=== PATIENT | male | born 1950 | race African-American/Black ===

== ENCOUNTER → 2017-02-24 | Outpatient (CLI) | payer BC ==
[~2017-02-24] MED LIST: ASPI-1159 PO; CEPH500T PO; DICL50TA9 PO; HYDR-4001 PO; HYDR-519 PO; METH-375 PO; NAPR220C15 PO; OMEP20CA10 PO
[2017-02-24 08:06] LABS: BASOPHILS % 1.1 % (0.0-2.0); EOSINOPHILS % 2.6 % (0.0-5.0); HEMATOCRIT. 45.8 % (42.0-52.0); HEMOGLOBIN. 15.5 g/dL (14.0-18.0); LYMPHOCYTES % 23.8 % (20.0-50.0); MEAN CORPUSCULAR HEMOGLOBIN 30.8 pg (28.0-32.0); MEAN CORPUSCULAR VOLUME 91.1 fL (80.0-94.0); MEAN PLATELET VOLUME 7.9 fl (7.4-10.4); NEUTROPHILS % 62.5 % (40.0-76.0); PLATELET 234 x1000/uL (130-400); RED BLOOD CELL COUNT 5.02 mill/uL (4.7-6.1); RED CELL DISTRIBUTION WIDTH 13.9 % (11.6-14.6)
[2017-02-24 08:13] LABS: CARBON DIOXIDE 29 mEq/L (21-32); CHLORIDE 107 mEq/L (98-107); HDL CHOLESTEROL 59 mg/dL (40-59); LDL CHOLESTEROL 144 mg/dL (5-100)
[2017-02-24 08:26] LABS: CLARITY URINE CLEAR (CLEAR); COLOR URINE YELLOW (YELLOW); GLUCOSE URINE NEGATIVE (NEGATIVE); KETONES URINE NEGATIVE (NEGATIVE); LEUKOCYTE ESTERASE URINE 1+ (NEGATIVE); NITRITE URINE NEGATIVE (NEGATIVE); OCCULT BLOOD URINE NEGATIVE (NEGATIVE); PROTEIN URINE NEGATIVE (NEGATIVE); UROBILINOGEN URINE 0.2 E.U./dL (0.2-1.0)
== END | disposition home or self-care (01) ==
LOC: LAB 07:17
PROVIDERS: ATTEND Internal Medicine Critical Care Medicine
DX: M16.11 Unilateral primary osteoarthritis, right hip (principal); N52.9 Male erectile dysfunction, unspecified
CPT/HCPCS: 36415; 80053; 80061; 81001; 84153; 85025; 93005

== ENCOUNTER 2017-03-27 00:21 | Inpatient (IN) | payer BC ==
[~2017-03-27] VITALS: Ht 182.9 cm; Wt 118.8 kg
[~2017-03-27 00:21] MED LIST changes: -CEPH500T PO; -DICL50TA9 PO; -HYDR-4001 PO; -OMEP20CA10 PO
[2017-03-27] MEDS ORDERED: SODIUM CHLORIDE 0.9% 1,000 ML IV ONE ×2 (00:33→05:03)
[2017-03-27] MEDS ORDERED: KETOROLAC 30MG/ML VIAL IV STA (00:33)
[2017-03-27] MEDS ORDERED: ONDANSETRON HCL 4MG/2ML VIAL IV STA (00:33)
[2017-03-27] MEDS ORDERED: DICL50TA9 PO (00:36)
[2017-03-27] MEDS ORDERED: METH-375 PO (00:37)
[2017-03-27 00:51] LABS: HEMATOCRIT. 44.6 % (42.0-52.0); MEAN CORPUSCULAR HEMOGLOBIN 30.8 pg (28.0-32.0); MEAN CORPUSCULAR VOLUME 91.2 fL (80.0-94.0); MEAN PLATELET VOLUME 7.9 fl (7.4-10.4); PLATELET 211 x1000/uL (130-400); RED BLOOD CELL COUNT 4.89 mill/uL (4.7-6.1)
[2017-03-27 00:57] LABS: CHLORIDE 101 mEq/L (98-107)
[2017-03-27 01:05] LABS: CARBON DIOXIDE 32 mEq/L (21-32)
[2017-03-27 01:22] LABS: PLATELET ESTIMATE NORMAL
[2017-03-27] MEDS ORDERED: KETOROLAC 30MG/ML VIAL IV ONE (02:45)
[2017-03-27] MEDS ORDERED: MORPHINE SULFATE 2 MG/ML CPJ (NOT FOR IM USE) IV PRN (07:00)
[2017-03-27] MEDS ORDERED: MORPHINE SULFATE 4 MG/ML CPJ (NOT FOR IM USE) IV PRN (07:00)
[2017-03-27] MEDS ORDERED: ONDANSETRON HCL 4MG/2ML VIAL IV PRN (07:00)
[2017-03-27 08:00] VITALS: BP 111/70
[2017-03-27 08:10] VITALS: BP 104/63
[2017-03-27] MEDS: PANTOPRAZOLE SODIUM 40 MG/VIAL IV SCH (11:15)
[2017-03-27 12:00] VITALS: BP_SYST 104; BP_SYST 95; BP_DIAS 52; BP_DIAS 63
[2017-03-27] MEDS: SODIUM CHL 0.45% + KCL 20MEQ/L 1,000 ML IV SCH ×2 (12:30→22:46)
[2017-03-27 16:00] VITALS: BP 104/58
[2017-03-27 17:00] VITALS: BP 111/70
[2017-03-27 17:19] LABS: HEMATOCRIT. 39.6 % (42.0-52.0); HEMOGLOBIN. 13.1 g/dL (14.0-18.0); MEAN CORPUSCULAR HEMOGLOBIN 30.2 pg (28.0-32.0); MEAN CORPUSCULAR VOLUME 90.9 fL (80.0-94.0); MEAN PLATELET VOLUME 7.8 fl (7.4-10.4); PLATELET 187 x1000/uL (130-400); RED BLOOD CELL COUNT 4.35 mill/uL (4.7-6.1); RED CELL DISTRIBUTION WIDTH 14.1 % (11.6-14.6)
[2017-03-27 17:49] LABS: PLATELET ESTIMATE NORMAL
[2017-03-27 20:00] VITALS: BP 111/62
[2017-03-27] MEDS: HYDROCORTISONE 1% RECTAL CREAM 30GM PR SCH (22:46)
[2017-03-28] VITALS: BP 100/63
[2017-03-28 00:25] LABS: INR 1.3; PARTIAL THROMBOPLASTIN TIME 31.6 sec (23.4-31.0); PROTHROMBIN TIME 13.5 sec (9.4-11.6)
[2017-03-28] MEDS: HYDROCORTISONE 1% RECTAL CREAM 30GM PR SCH ×3 (00:47→21:00)
[2017-03-28 04:00] VITALS: BP 118/61
[2017-03-28] MEDS: SODIUM CHL 0.45% + KCL 20MEQ/L 1,000 ML IV SCH (06:45)
[2017-03-28] MEDS ORDERED: BUPIVACAINE HCL 0.5% (5MG/ML) 50ML ONE (06:56)
[2017-03-28] MEDS ORDERED: SKIN ADHESIVE 0.7 GM EA TOP ONE (06:56)
[2017-03-28] MEDS: DEXT 5%/0.45% NACL KCL 20MEQ/L 1,000 ML IV SCH ×2 (07:27→17:44)
[2017-03-28] MEDS ORDERED: HYDROCODONE/ACETAMINOPHEN 5/325MG TABLET PO PRN ×2 (07:30)
[2017-03-28] MEDS ORDERED: ONDANSETRON HCL 4MG/2ML VIAL IV PRN ×2 (07:30→08:15)
[2017-03-28] MEDS ORDERED: MORPHINE SULFATE 4 MG/ML CPJ (NOT FOR IM USE) IV PRN (07:30)
[2017-03-28] MEDS ORDERED: MORPHINE SULFATE 2 MG/ML CPJ (NOT FOR IM USE) IV PRN (07:30)
[2017-03-28] MEDS ORDERED: FENTANYL CITRATE/PF 50MCG/ML 2ML VIAL ONE ×3 (07:38)
[2017-03-28] MEDS ORDERED: HYDROMORPHONE HCL/PF 2MG/ML (OR) ONE (07:38)
[2017-03-28] MEDS ORDERED: MIDAZOLAM HCL 2 MG/2 ML VIAL ONE ×3 (07:38)
[2017-03-28] MEDS ORDERED: SUCCINYLCHOLINE CHLORIDE 200MG/10ML VIAL IV ONE (07:50)
[2017-03-28] MEDS ORDERED: MEPERIDINE HCL/PF 25MG/ML CPJ IV PRN (08:15)
[2017-03-28] MEDS ORDERED: LABETALOL HCL 20MG/4ML CARPUJECT IV PRN (08:15)
[2017-03-28] MEDS ORDERED: HYDROMORPHONE HCL/PF 2MG/ML CPJ IV PRN (08:15)
[2017-03-28] MEDS: PANTOPRAZOLE SODIUM 40 MG/VIAL IV SCH (09:00)
[2017-03-28 10:40] VITALS: BP 131/79
[2017-03-28 12:00] VITALS: BP 128/76
[2017-03-28 16:00] VITALS: BP 133/86
[2017-03-28 20:00] VITALS: BP 130/72
[2017-03-29] VITALS: BP 118/69
[2017-03-29 04:00] VITALS: BP 120/75
[2017-03-29 07:10] LABS: HEMATOCRIT. 42.2 % (42.0-52.0); HEMOGLOBIN. 13.9 g/dL (14.0-18.0); MEAN CORPUSCULAR HEMOGLOBIN 30.2 pg (28.0-32.0); MEAN CORPUSCULAR VOLUME 91.8 fL (80.0-94.0); MEAN PLATELET VOLUME 8.6 fl (7.4-10.4); PLATELET 217 x1000/uL (130-400); RED BLOOD CELL COUNT 4.59 mill/uL (4.7-6.1); RED CELL DISTRIBUTION WIDTH 14.1 % (11.6-14.6)
[2017-03-29 07:54] LABS: CARBON DIOXIDE 26 mEq/L (21-32); CHLORIDE 108 mEq/L (98-107)
[2017-03-29 08:00] VITALS: BP 122/69
[2017-03-29 10:22] VITALS: BP 122/69
[2017-03-29] MEDS ORDERED: HYDR-4001 PO (11:17)
[2017-03-29] MEDS ORDERED: OMEP20CA10 PO (11:17)
[2017-03-29] MEDS ORDERED: CEPH500T PO (11:17)
[2017-03-29] MEDS: HYDROCORTISONE 1% RECTAL CREAM 30GM PR SCH (11:44)
[2017-03-29 18:47] LABS: PLATELET ESTIMATE NORMAL
== END 2017-03-29 11:50 | disposition home or self-care (01) | DRG 357 ==
LOC: ER 00:21 → 6EST 04:51 → EDBEDREQ 04:53 → ENRESERV 06:34
PROVIDERS: ADMIT Internal Medicine Critical Care Medicine; ATTEND Internal Medicine Critical Care Medicine
PROC: 069Y3ZZ Drainage of Lower Vein, Percutaneous Approach (ICD-10-PCS; 2017-03-28)
PROC: 0FT44ZZ Resection of Gallbladder, Percutaneous Endoscopic Approach (ICD-10-PCS; principal; 2017-03-28 07:30)
DX: K64.5 Perianal venous thrombosis (principal); K80.00 Calculus of gallbladder with acute cholecystitis without obstruction; M19.012 Primary osteoarthritis, left shoulder; M17.0 Bilateral primary osteoarthritis of knee; Z79.82 Long term (current) use of aspirin; Z79.899 Other long term (current) drug therapy
CPT/HCPCS: 36415; 74176; 74181; 76700; 78227; 80048; 80053; 80076; 83690; 85025; 85610; 85730; 88304; 96361; 96374; 96375; 96376; 99285; A9537; J0330; J1170; J1885; J2250; J2270; J2405; J3010; J3480; J3490; J7030

== ENCOUNTER → 2017-04-10 | Outpatient (CLI) | payer BC ==
[~2017-04-10] MED LIST changes: +CEPH500T PO; +DICL50TA9 PO; +HYDR-4001 PO; -NAPR220C15 PO; +OMEP20CA10 PO
[2017-04-10 09:10] LABS: BASOPHILS % 0.2 % (0.0-2.0); HEMATOCRIT. 40.8 % (42.0-52.0); HEMOGLOBIN. 13.8 g/dL (14.0-18.0); MEAN CORPUSCULAR HEMOGLOBIN 30.8 pg (28.0-32.0); MEAN PLATELET VOLUME 7.7 fl (7.4-10.4); MONOCYTES % 8.8 % (2.0-8.0); PLATELET 279 x1000/uL (130-400); RED BLOOD CELL COUNT 4.49 mill/uL (4.7-6.1); RED CELL DISTRIBUTION WIDTH 13.3 % (11.6-14.6)
[2017-04-10 09:34] LABS: CARBON DIOXIDE 26 mEq/L (21-32); CHLORIDE 106 mEq/L (98-107)
== END | disposition home or self-care (01) ==
LOC: LAB 08:49
PROVIDERS: ATTEND Internal Medicine Critical Care Medicine
DX: I10 Essential (primary) hypertension (principal); K64.9 Unspecified hemorrhoids; R10.10 Upper abdominal pain, unspecified
CPT/HCPCS: 36415; 80048; 85025

== ENCOUNTER 2017-06-13 07:19 | Emergency (ER) | payer BC ==
[~2017-06-13] VITALS: Ht 182.9 cm; Wt 111.0 kg
[2017-06-13] MEDS ORDERED: SODIUM CHLORIDE 0.9% 1,000 ML IV ONE (07:43)
[2017-06-13] MEDS ORDERED: MECLIZINE 25MG TABLET PO ONE (07:45)
[2017-06-13 08:09] LABS: BASOPHILS % 0.5 % (0.0-2.0); EOSINOPHILS % 2.4 % (0.0-5.0); HEMATOCRIT. 44.2 % (42.0-52.0); HEMOGLOBIN. 14.5 g/dL (14.0-18.0); LYMPHOCYTES % 22.5 % (20.0-50.0); MEAN CORPUSCULAR HEMOGLOBIN 29.8 pg (28.0-32.0); MEAN PLATELET VOLUME 8.1 fl (7.4-10.4); MONOCYTES % 9.2 % (2.0-8.0); NEUTROPHILS % 65.4 % (40.0-76.0); PLATELET 200 x1000/uL (130-400); RED BLOOD CELL COUNT 4.86 mill/uL (4.7-6.1); RED CELL DISTRIBUTION WIDTH 14.1 % (11.6-14.6)
[2017-06-13 08:22] LABS: INR 1.1; PROTHROMBIN TIME 11.3 sec (9.4-11.6)
[2017-06-13 08:38] LABS: CARBON DIOXIDE 30 mEq/L (21-32); CHLORIDE 107 mEq/L (98-107); TROPONIN I < 0.02 ng/mL (0.00-0.04)
[2017-06-13 09:16] VITALS: BP 126/87
[2017-06-13 09:51] LABS: CLARITY URINE CLEAR (CLEAR); COLOR URINE YELLOW (YELLOW); KETONES URINE NEGATIVE (NEGATIVE); LEUKOCYTE ESTERASE URINE 1+ (NEGATIVE); NITRITE URINE NEGATIVE (NEGATIVE); OCCULT BLOOD URINE NEGATIVE (NEGATIVE); PROTEIN URINE NEGATIVE (NEGATIVE); SPECIFIC GRAVITY URINE 1.017 (1.005-1.030); UROBILINOGEN URINE 0.2 E.U./dL (0.2-1.0)
== END 2017-06-13 09:26 | disposition home or self-care (01) ==
LOC: ER 07:35
DX: R42 Dizziness and giddiness (principal); Z90.49 Acquired absence of other specified parts of digestive tract
CPT/HCPCS: 36415; 70450; 71010; 80053; 81001; 83880; 84484; 85025; 85610; 93005; 96360; 99285; J7030; Z7610; J8597

== ENCOUNTER 2018-04-02 05:26 | Emergency (ER) | payer BC ==
[~2018-04-02] VITALS: Ht 182.9 cm; Wt 110.0 kg
[2018-04-02] MEDS ORDERED: KETOROLAC 60MG/2ML VIAL IM ONE (07:30)
[2018-04-02 10:16] VITALS: BP 122/71
== END 2018-04-02 10:20 | disposition home or self-care (01) ==
LOC: ER 08:55
DX: M54.42 Lumbago with sciatica, left side (principal); M16.0 Bilateral primary osteoarthritis of hip; M47.896 Other spondylosis, lumbar region
CPT/HCPCS: 72110; 72148; 73502; 96372; 99284; J1885; Z7610

== ENCOUNTER 2018-08-02 14:51 | Inpatient (IN) | payer BC, MEDICARE ==
[~2018-08-02] VITALS: Ht 182.9 cm; Wt 110.7 kg
[2018-08-02] MEDS ORDERED: SODIUM CHLORIDE 0.9% 1,000 ML IV ONE (15:51)
[2018-08-02] MEDS ORDERED: FENTANYL CITRATE/PF 50MCG/ML 2ML VIAL IV ONE (16:00)
[2018-08-02] MEDS ORDERED: ONDANSETRON HCL 4MG/2ML INJ IV ONE (16:00)
[2018-08-02] MEDS ORDERED: GADOBENATE DIMEGLUMINE 529 MG/ML 10ML IV ONE (16:39)
[2018-08-02 17:05] LABS: BASOPHILS % 0.8 % (0.0-2.0); EOSINOPHILS % 0.9 % (0.0-5.0); HEMATOCRIT. 51.6 % (42.0-52.0); HEMOGLOBIN. 17.4 g/dL (14.0-18.0); LYMPHOCYTES % 25.6 % (20.0-50.0); MEAN CORPUSCULAR HEMOGLOBIN 31.5 pg (28.0-32.0); MEAN CORPUSCULAR VOLUME 93.3 fL (80.0-94.0); MEAN PLATELET VOLUME 8.8 fl (7.4-10.4); MONOCYTES % 9.4 % (2.0-8.0); NEUTROPHILS % 63.3 % (40.0-76.0); PLATELET 276 x1000/uL (130-400); RED BLOOD CELL COUNT 5.53 mill/uL (4.7-6.1); RED CELL DISTRIBUTION WIDTH 13.6 % (11.6-14.6)
[2018-08-02 17:08] LABS: CHLORIDE 106 mEq/L (98-107)
[2018-08-02 17:13] LABS: PARTIAL THROMBOPLASTIN TIME 30.3 sec (23.4-31.0); PROTHROMBIN TIME 10.3 sec (9.1-11.1)
[2018-08-02 18:11] LABS: CLARITY URINE CLEAR (CLEAR); COLOR URINE YELLOW (YELLOW); KETONES URINE TRACE (NEGATIVE); LEUKOCYTE ESTERASE URINE TRACE (NEGATIVE); NITRITE URINE NEGATIVE (NEGATIVE); OCCULT BLOOD URINE NEGATIVE (NEGATIVE); PH URINE 5.5 (4.5-8.0); PROTEIN URINE NEGATIVE (NEGATIVE); SPECIFIC GRAVITY URINE 1.018 (1.005-1.030); UROBILINOGEN URINE 0.2 E.U./dL (0.2-1.0)
[2018-08-02] MEDS ORDERED: MORPHINE SULFATE 4 MG/ML CPJ (NOT FOR IM USE) IV PRN (19:30)
[2018-08-02 21:00] VITALS: BP 118/70
[2018-08-03] VITALS: BP 115/69
[2018-08-03] MEDS: TEMAZEPAM 15MG CAPSULE PO PRN ×2 (00:06→20:06)
[2018-08-03 01:13] VITALS: BP 118/70
[2018-08-03 04:00] VITALS: BP 122/71
[2018-08-03] MEDS ORDERED: THROMBIN (BOVINE) 5000 UNITS/VIAL TOP ONE (06:21)
[2018-08-03] MEDS ORDERED: NORMAL SALINE 0.9% 10 ML SYR ONE (06:21)
[2018-08-03] MEDS ORDERED: GELATIN SPONGE,ABSORBABLE 12-7MM SPONGE ONE (06:21)
[2018-08-03] MEDS ORDERED: LIDOCAINE HCL/EPINEPHRINE 1%-EPI 1:100,000 20 ML VIAL ONE (06:22)
[2018-08-03] MEDS ORDERED: BACITRACIN 50,000 UNITS/VIAL ONE (06:22)
[2018-08-03] MEDS ORDERED: GLYCOPYRROLATE 0.2 MG/ML 2ML VIAL ONE (06:57)
[2018-08-03] MEDS ORDERED: PROPOFOL 200MG/20ML VIAL IV ONE (06:57)
[2018-08-03] MEDS ORDERED: NEOSTIGMINE METHYLSULFATE 1MG/ML 10 ML VIAL ONE (06:57)
[2018-08-03] MEDS ORDERED: ROCURONIUM BROMIDE 10MG/ML VIAL 5ML IV ONE ×2 (06:57→07:34)
[2018-08-03] MEDS ORDERED: FENTANYL CITRATE/PF 50MCG/ML 2ML VIAL ONE ×2 (06:57→08:28)
[2018-08-03] MEDS ORDERED: MIDAZOLAM HCL 2 MG/2 ML VIAL ONE (06:57)
[2018-08-03] MEDS ORDERED: LIDOCAINE HCL/PF 1% 10 MG/ML 5ML VIAL ONE (06:58)
[2018-08-03] MEDS ORDERED: CEFAZOLIN SODIUM 1000MG/VIAL ONE (06:59)
[2018-08-03] MEDS ORDERED: ONDANSETRON HCL 4MG/2ML INJ ONE (06:59)
[2018-08-03] MEDS ORDERED: ONDANSETRON HCL 4MG/2ML INJ IV PRN ×2 (07:15→10:15)
[2018-08-03] MEDS ORDERED: CLONIDINE 0.1MG TABLET PO PRN (07:15)
[2018-08-03] MEDS ORDERED: HYDR30CR8 TP (07:33)
[2018-08-03] MEDS ORDERED: LIDO700A30 TP (07:33)
[2018-08-03] MEDS ORDERED: CLIN75GE4 TP (07:33)
[2018-08-03] MEDS ORDERED: HYDR1.5C TP (07:33)
[2018-08-03] MEDS ORDERED: ELIDEL (07:33)
[2018-08-03] MEDS ORDERED: [UNRECOGNIZED DRUG - CODE] TOP (07:33)
[2018-08-03] MEDS ORDERED: CICL90CR11 TP (07:33)
[2018-08-03] MEDS ORDERED: METOCLOPRAMIDE HCL 10MG/2ML VIAL IV PRN (10:15)
[2018-08-03] MEDS ORDERED: MEPERIDINE HCL/PF 25MG/ML CPJ IV PRN (10:15)
[2018-08-03] MEDS: HYDROMORPHONE HCL/PF 2MG/ML CPJ IV PRN ×2 (10:31→10:52)
[2018-08-03] MEDS ORDERED: ONDANSETRON INJ IV PRN (11:00)
[2018-08-03] MEDS ORDERED: HYDROMORPHONE PCA 10MG/50ML IV PRN (11:00)
[2018-08-03] MEDS ORDERED: DIPHENHYDRAMINE INJ IV PRN (11:00)
[2018-08-03] MEDS ORDERED: NALOXONE INJ IV PRN (11:00)
[2018-08-03] MEDS: DEXT 5%/LACTATED RINGERS 1,000 ML IV SCH ×3 (12:25→23:11)
[2018-08-03] MEDS ORDERED: CEFAZOLIN SODIUM 1000MG/VIAL IV SCH (14:00)
[2018-08-03] MEDS: CEFAZOLIN 1000MG PREMIX 50 ML IV SCH ×2 (15:47→23:11)
[2018-08-03 16:00] VITALS: BP 122/67
[2018-08-03] MEDS: THROAT LOZENGES-BENZOCAINE/MENTH/CETYLPYRD CL LOZENGES MM PRN (16:47)
[2018-08-03 20:00] VITALS: BP 122/68
[2018-08-04] VITALS: BP 116/63
[2018-08-04 04:00] VITALS: BP 101/46
[2018-08-04] MEDS: THROAT LOZENGES-BENZOCAINE/MENTH/CETYLPYRD CL LOZENGES MM PRN ×2 (06:38→12:25)
[2018-08-04 08:00] VITALS: BP 91/33
[2018-08-04] MEDS: CEFAZOLIN 1000MG PREMIX 50 ML IV SCH ×2 (08:04→14:46)
[2018-08-04 12:00] VITALS: BP 98/32
[2018-08-04 16:00] VITALS: BP 104/53
[2018-08-04 20:00] VITALS: BP 103/51
[2018-08-04] MEDS: TEMAZEPAM 15MG CAPSULE PO PRN (20:59)
[2018-08-05] VITALS (7 sets, daily range): BP systolic 96–119; BP diastolic 52–61
[2018-08-05] MEDS: THROAT LOZENGES-BENZOCAINE/MENTH/CETYLPYRD CL LOZENGES MM PRN (07:31)
[2018-08-05] MEDS ORDERED: OXYCODONE HCL/ACETAMINOPHEN 5/325MG TABLET PO PRN (14:00)
[2018-08-05] MEDS: OXYCODONE HCL/ACETAMINOPHEN 5/325MG TABLET PO PRN (15:08)
[2018-08-05] MEDS ORDERED: THROAT LOZENGES-BENZOCAINE/MENTH/CETYLPYRD CL LOZENGES MM PRN (15:15)
[2018-08-05] MEDS: LEVOFLOXACIN 500MG TABLET PO SCH (18:53)
[2018-08-05] MEDS: TEMAZEPAM 15MG CAPSULE PO PRN (19:51)
[2018-08-06] VITALS: BP 113/55
[2018-08-06 04:00] VITALS: BP 114/66
[2018-08-06] MEDS: OXYCODONE HCL/ACETAMINOPHEN 5/325MG TABLET PO PRN (04:28)
[2018-08-06 08:00] VITALS: BP 119/56
[2018-08-06] MEDS: LEVOFLOXACIN 500MG TABLET PO SCH (11:15)
== END 2018-08-06 11:44 | disposition home or self-care (01) | DRG 516 ==
LOC: ER 14:51 → 6EST 16:22 → EDBEDREQ 16:26 → EDBEDREQTM 16:26 → ENRESERV 19:07 → 6EST 08-03 08:24
PROVIDERS: ADMIT Internal Medicine; ATTEND Internal Medicine
PROC: 01NB0ZZ Release Lumbar Nerve, Open Approach (ICD-10-PCS; principal; 2018-08-03)
PROC: BR191ZZ Fluoroscopy of Lumbar Spine using Low Osmolar Contrast (ICD-10-PCS; 2018-08-03)
DX: M48.07 Spinal stenosis, lumbosacral region (principal); N39.0 Urinary tract infection, site not specified; M54.30 Sciatica, unspecified side; M71.38 Other bursal cyst, other site; M48.061 Spinal stenosis, lumbar region without neurogenic claudication; M54.17 Radiculopathy, lumbosacral region; G89.29 Other chronic pain; Z79.82 Long term (current) use of aspirin; Z98.41 Cataract extraction status, right eye; Z98.42 Cataract extraction status, left eye; Z90.49 Acquired absence of other specified parts of digestive tract; Z79.899 Other long term (current) drug therapy
CPT/HCPCS: 36415; 71045; 72100; 72158; 76000; 86850; 86900; 87077; 87186; 88304; 88311; 93005; 95863; 95925; 95926; 96361; 96374; 96375; 97116; 97162; 97535; 99285; A9577; J0690; J1170; J2250; J2405; J2704; J2710; J2765; J3010; J3490; J7030; J7121

== ENCOUNTER 2022-10-28 16:04 | Emergency (ER) | payer BC ==
[~2022-10-28] VITALS: Ht 182.9 cm; Wt 120.0 kg
[~2022-10-28 16:04] MED LIST changes: -ASPI-1159 PO; +ASPI-1497 PO; +CICL90CR11 TP; +CLIN75GE4 TP; +ELIDEL; +HYDR1.5C TP; +HYDR30CR8 TP; +LIDO700A30 TP; -OMEP20CA10 PO; +OMEP20CA14 PO; +[UNRECOGNIZED DRUG - CODE] TOP
[2022-10-28] MEDS ORDERED: KETOROLAC 60MG/2ML VIAL IM ONE (17:00)
[2022-10-28] MEDS ORDERED: HYDROCODONE/ACETAMINOPHEN 5/325MG TABLET PO ONE (17:00)
[2022-10-28] MEDS ORDERED: HYDR-4001 MT (20:26)
[2022-10-28] MEDS ORDERED: NAPR-681 MT (20:26)
[2022-10-28 21:25] VITALS: BP 130/70
== END 2022-10-28 21:25 | disposition home or self-care (01) ==
LOC: ER 16:04
DX: M54.9 Dorsalgia, unspecified (principal); M25.552 Pain in left hip; W18.39XA Other fall on same level, initial encounter; Y93.89 Activity, other specified; Y92.89 Other specified places as the place of occurrence of the external cause; Y99.8 Other external cause status; Z90.49 Acquired absence of other specified parts of digestive tract; Z79.899 Other long term (current) drug therapy
CPT/HCPCS: 72131; 72192; 96372; 99285; J1885